=== PATIENT | female | born 1990 | race Caucasian/White ===

== ENCOUNTER 2021-03-19 11:44 | Emergency (ER) | payer OTHER, SELFPAY ==
[2021-03-19 12:20] VITALS: BP 143/93; PULSE 113; RESP 18; TEMP 36.8; O2SAT 97; BMI 28.3
== END 2021-03-19 17:23 | disposition left against medical advice (07) ==
PROVIDERS: Emergency Provider Emergency Medicine
DX: R51.9 Headache, unspecified (principal); R53.1 Weakness; R10.9 Unspecified abdominal pain
CPT/HCPCS: 99281; 99282

== ENCOUNTER 2023-09-21 11:13 | Emergency (ER) | payer OTHER, SELFPAY ==
[2023-09-21 11:45] VITALS: BP 120/80; PULSE 77; RESP 16; TEMP 36.8; O2SAT 97; BMI 22.4
--- NOTE | 2023-09-21 11:45 | ED.GENADULT ---
HPI - General Adult General Chief complaint: Skin/Abscess/Foreign Body Stated complaint: Abscess top of mouth Time Seen by Provider: 09/21/23 12:38 Related Data Previous Rx's Medication Instructions Recorded amoxicillin 500 mg-potassium 1 tab PO TID 10 days #30 tabs 09/21/23 clavulanate 125 mg tablet (Augmentin) ibuprofen 600 mg tablet 600 mg PO Q6H PRN pain #20 tabs 09/21/23 oxycodone 5 mg tablet 5 mg PO Q6H PRN pain #14 tabs 09/21/23 Allergies Allergy/AdvReac Type Severity Reaction Status Date / Time ciprofloxacin [CIPROFLOXACIN] Allergy Intermediate NAUSEA & Verified 09/21/23 11:44 VOMITING codeine [CODEINE] Allergy Intermediate HIVES Verified 09/21/23 11:44 erythromycin base Allergy Intermediate HIVES Verified 09/21/23 11:44 [ERYTHROMYCIN BASE] [facility] Past Medical History Medical History (Updated 09/21/23 @ 14:48 by ARI Escobar) Borderline personality disorder PTSD (post-traumatic stress disorder) Depression Anxiety Social History Social History Advance Directives: No Advance Directives Information Provided: Yes Physical Exam ED Vital Signs: Vital Signs - 24 hr 09/21/23 11:45 09/21/23 15:09 Temperature 98.3 F 98.1 F Pulse Rate 77 61 Respiratory Rate 16 16 Blood Pressure 120/80 122/76 Pulse Oximetry 97 16 L Oxygen Delivery Method Room Air Room Air BMI result Body Mass Index 22.4 Course Course Course Narrative: RME:?33 yo female here for eval of periapical abscess to right upper teeth x4 days, worsening yesterday. she has not been able to keep food down d/t pain. taking tylenol and ibuprofen, last took at 1000 this morning. denies fever. Reports seeing dentist approximately 2 months ago who told her that she needed a total mouth extraction of teeth however has been looking for a second opinion. Periapical abscess noted to right upper teeth 3-5 with a majority of edema noted to lingual side of gums. Palpable fluctuance. plan for basic labs. will require drainage and abx. Full HPI, ROS and PE to be performed by the primary ED provider. Well-appearing patient afebrile, calm and cooperative, pulse is 77 blood pressure is normal, labs were drawn showing a white count of 14.9 Patient has obvious dental infection but no signs of sepsis, white count is likely from stress and dental infection I did dental block over affected tooth I aspirated the swollen area and did not get any pus just blood, I made a small incision and again discharge of blood but no pus I offered to provide further anesthesia directly into the abscess so that I could probe more deeply and patient could not tolerate the injection and said she did not want any further incision or drainage or aspiration It is likely that the soft tissue swelling is not full of pus as I did aspirate it and make a stab wound in it with no pus coming out and it is likely soft tissue swelling so I agreed with patient and the plan is to do frequent rinses gentle pressure over the area and antibiotics, it is likely that the bulk of infection and abscess is at the root of the tooth Well-appearing patient tolerating p.o. no sign of trismus no swelling under the tongue is discharged Medications Administered Discontinued Medications Generic Name Dose Route Start Last Admin Trade Name Freq PRN Reason Stop Dose Admin Amoxicillin/Clavulanate Potassium 500 mg 09/21/23 12:55 09/21/23 13:21 Amoxicillin/Potassium Clav 500 Mg Tablet PO 09/21/23 12:56 500 mg ONCE ONE Administration Bupivacaine HCl 5 ml 09/21/23 12:55 09/21/23 13:21 Bupivacaine Mpf 0.5 % 10 Ml Vial SUBCUT 09/21/23 12:56 5 ml ONCE ONE Administration Lidocaine HCl 5 ml 09/21/23 12:55 09/21/23 13:21 Lidocaine Hcl 1 % Mpf 5 Ml Vial SUBCUT 09/21/23 12:56 5 ml ONCE ONE Administration Medical Decision Making Lab Data 09/21/23 11:52 09/21/23 11:52 Labs: Lab Results 09/21/23 Range/Units 11:52 WBC 14.9 H (4.8-10.8) X10*3/uL RBC 4.45 (4.20-5.50) X10*6/uL Hgb 12.7 (12.0-16.0) g/dl Hct 38.8 (37.0-47.0) % MCV 87.2 (80.0-98.0) fL MCH 28.5 (27.0-33.0) pg MCHC 32.7 (31.0-35.0) g/dl RDW 14.4 (11.0-16.0) % Plt Count 303 (160-400) X10*3/uL MPV 10.3 (9.4-12.3) fL Immature Gran % (Auto) 0.4 (0.0-0.4) % Neut % (Auto) 87.0 H (45-73) % Lymph % (Auto) 8.0 L (20-40) % [place] % (Auto) 4.0 (2-11) % Eos % (Auto) 0.3 (0-4) % Baso % (Auto) 0.3 (0-2) % Lymph # (Auto) 1.2 (1.2-4.9) X10*3/uL [place] # (Auto) 0.6 (0.1-1.2) X10*3/uL Eos # (Auto) 0.0 (0.0-0.4) X10*3/uL Baso # (Auto) 0.1 (0.0-0.2) X10*3/uL Abs Immat Gran (auto) 0.06 H (0.00-0.03) X10*3/uL Absolute Neuts (auto) 13.0 H (2.0-8.3) x10*3/uL Absolute Nucleated RBC 0.000 (0.0-0.012) X10*3/uL Nucleated RBC % (auto) 0.0 (0.0-0.2) /100WBC Sodium 142 (135-145) mmol/L Potassium 4.0 (3.3-5.1) mmol/L Chloride 106 (96-108) mmol/L Carbon Dioxide 25 (22-29) mmol/L Anion Gap 15 (12-20) BUN 13 (9-16) mg/dL Creatinine 0.65 (0.5-1.4) mg/dL Estim Creat Clear Calc 106.3 Estimated GFR > 60 Random Glucose 92 (60-115) mg/dL Calcium 9.6 (8.4-10.2) mg/dL Total Bilirubin 0.4 (0.0-1.0) mg/dL AST 15 (5-31) U/L ALT 17 (0-31) U/L Alkaline Phosphatase 102 (39-117) U/L Total Protein 7.6 (6.5-8.0) g/dL Albumin 4.1 (3.5-5.0) g/dL Discharge Plan Discharge Clinical Impression: Dental abscess Patient Disposition: Home, Self-Care Additional Instructions: I aspirated the swollen area and made a small incision, a puncture incision, and only blood came out I did not get any pus It is possible that there is pus deeper down , or this could all be soft tissue swelling because of a deep abscess at the root of the tooth The most important treatment is to get the tooth pulledand follow with dentist Antibiotics and frequent salt water rinse may drop any pus that can come out, you can also apply gentle pressure around the edges of the swelling to see if any pus does come out Take antibiotics as directed Return to the ER any time for fever, worse pain and swelling, swelling under the tongue, any worse condition or any concerns most important to treat the infection in the tooth is to see a dentist as the tooth probably needs to be pulled Prescriptions: New amoxicillin-pot clavulanate [Augmentin] 500-125 mg tablet 1 tab PO TID 10 Days Qty: 30 0RF ibuprofen 600 mg tablet 600 mg PO Q6H PRN (Reason: pain) Qty: 20 0RF oxycodone 5 mg tablet 5 mg PO Q6H PRN (Reason: pain) Qty: 14 0RF Rx Instructions: Partial Fill upon patient request. Stand Alone Forms: Work/School Release
[2023-09-21 12:00] LABS: MANUAL DIFF FLAG NO
[2023-09-21 12:02] LABS: Basophils Absolute Auto 0.1 X10*3/uL (0.0-0.2); Basophils Percent Auto 0.3 % (0-2); Eosinophils Percent Auto 0.3 % (0-4); Hematocrit 38.8 % (37.0-47.0); Hemoglobin 12.7 g/dl (12.0-16.0); Imm Gran Abs Auto 0.06 X10*3/uL (0.00-0.03); Imm Gran Pct Auto 0.4 % (0.0-0.4); Lymphocytes Absolute Auto 1.2 X10*3/uL (1.2-4.9); Mean Corpuscular HGB Conc 32.7 g/dl (31.0-35.0); Mean Corpuscular Hemoglobin 28.5 pg (27.0-33.0); Mean Corpuscular Volume 87.2 fL (80.0-98.0); Mean Platelet Volume 10.3 fL (9.4-12.3); Monocytes Absolute Auto 0.6 X10*3/uL (0.1-1.2); Platelet Count 303 X10*3/uL (160-400); Red Blood Count 4.45 X10*6/uL (4.20-5.50); Red Cell Distribution Width 14.4 % (11.0-16.0); White Blood Count 14.9 X10*3/uL (4.8-10.8)
[2023-09-21 12:17] LABS: Alanine Aminotransferase 17 U/L (0-31); Albumin Level 4.1 g/dL (3.5-5.0); Alkaline Phosphatase 102 U/L (39-117); Anion Gap 15 (12-20); Aspartate Amino Transferase 15 U/L (5-31); Bilirubin Total 0.4 mg/dL (0.0-1.0); Blood Urea Nitrogen 13 mg/dL (9-16); Calcium 9.6 mg/dL (8.4-10.2); Carbon Dioxide 25 mmol/L (22-29); Chloride 106 mmol/L (96-108); Creatinine Clr Calc Pharmacy 106.3; Estimated Glomerular Filt Rate > 60; Glucose Random 92 mg/dL (60-115); Sodium 142 mmol/L (135-145); Total Protein 7.6 g/dL (6.5-8.0)
[2023-09-21] MEDS: Lidocaine HCl 1 % MPF 5 ML VIAL SUBCUT (13:21)
[2023-09-21] MEDS: BUPivacaine MPF 0.5 % 10 ML VIAL 5 ML SUBCUT (13:21)
[2023-09-21] MEDS: Amoxicillin/Potassium Clav 500 MG TABLET PO (13:21)
--- NOTE | 2023-09-21 13:45 | PC.NURSE ---
pt medicated per JEN Cook to perform incision and drainage on dental abcess
[2023-09-21 15:09] VITALS: BP 122/76; PULSE 61; RESP 16; TEMP 36.7; O2SAT 96
[2023-09-21 15:32] VITALS: BP 147/76; PULSE 77; RESP 19; TEMP 36.7; O2SAT 99
== END 2023-09-21 15:33 | disposition home or self-care (01) ==
PROVIDERS: Physician Assistant Medical; Emergency Provider Emergency Medicine
DX: K04.7 Periapical abscess without sinus (principal)
CPT/HCPCS: 36415; 41800; 80053; 85025; 99283; 99284; J0665